=== PATIENT | female | born 1950 | race African-American/Black ===

== ENCOUNTER 2021-12-15 12:55 | Emergency (ER) | payer MEDICARE ==
[2021-12-15] MEDS ORDERED: Lidocaine 1% (PF) 30 ML VIAL ONE (13:04)
[2021-12-15] MEDS ORDERED: Bacitracin 1 PK ONE (13:04)
== END 2021-12-15 14:21 | disposition home or self-care (01) ==
LOC: MADERS 12:55
DX: S81.812A Laceration without foreign body, left lower leg, initial encounter (principal); W26.8XXA Contact with other sharp object(s), not elsewhere classified, initial encounter
CPT/HCPCS: 12002; J2001